=== PATIENT | female | born 1935 | race Caucasian/White ===

== ENCOUNTER 2017-07-12 02:18 | Inpatient (IN) | payer MEDICARE, SELFPAY | END 2017-07-13 11:35 | disposition home or self-care (01) | DRG 690 | PROVIDERS: Admitting Provider Family Medicine; Emergency Provider Emergency Medicine; Family Provider Family Medicine; PCP Family Medicine; Visit Provider Family Medicine | DX: N39.0 Urinary tract infection, site not specified (principal); I48.0 Paroxysmal atrial fibrillation; N13.2 Hydronephrosis with renal and ureteral calculous obstruction; I12.9 Hypertensive chronic kidney disease with stage 1 through stage 4 chronic kidney disease, or unspecified chronic kidney disease; N18.3 Chronic kidney disease, stage 3 (moderate) | CPT/HCPCS: 36415; 74176; 80048; 80053; 81001; 82150; 82550; 82553; 82962; 83605; 83690; 84484; 85025; 87040; 87077; 87086; 87088; 87186; 93005; 93041; 96365; 96367; 96375; 99285; J2405 ==

== ENCOUNTER 2017-08-01 16:41 | Observation (INO) | payer MEDICARE, SELFPAY ==
[2017-08-02 19:35] VITALS: BMI 31.1
[2017-08-03] VITALS (9 sets, daily range): BP systolic 108–140; BP diastolic 46–73; PULSE 50–79; RESP 16–20; TEMP 36.4–37.6; O2SAT 93–100
--- NOTE | 2017-08-03 02:45 | PC.NURSE ---
AT 2029 PT IV ON ASSESSMENT INFILTRATED LEFT ARM SWOLLEN. NEW IV STARTED LEFT HAND 20G TIMES ONE ATTEMPT. PT TOLERATED WELL.
--- NOTE | 2017-08-03 02:47 | PC.ADMIT ---
[id number] Admission Note: The patient,Brenda Morocho,81 y/o, was given written information regarding hospital policies, unit procedures and contact persons. Patient's smoking status: . Vital Signs - 8 hr 08/03/17 00:00 Temperature 97.5 F L Pulse Rate [Left Radial] 76 Respiratory Rate 18 Blood Pressure [Left Arm] 127/72 02 Sat by Pulse Oximetry 93 L
--- NOTE | 2017-08-03 04:08 | PC.NURSE ---
PT HAS SLEPT. NO COMPLAINTS OF PAIN. DAUGHTER HAS REMAINED AT [facility].
--- NOTE | 2017-08-03 08:17 | PC.NURSE ---
REPORT GIVEN TO ME BY LANDY
--- NOTE | 2017-08-03 11:16 | P.PN_ITS ---
Internal Medicine - PN: Subj *Date: 08/03/17 *Time: 11:18 Interval history: Rested well. No new complaints. Speech is more clear and fluent today. Denies abdominal pain. Night nurse left word that [facility] had called with bed but not confirmed today Exam Vital signs and Labs for Last 24 Hours: Temp Pulse Resp BP Pulse Ox 99.7 F H 73 18 131/66 100 08/03/17 08:00 08/03/17 08:00 08/03/17 08:00 08/03/17 08:00 08/03/17 08:00 Short CBC 08/02/17 Range/Units 06:10 WBC 5.6 D (4.8 - 10.8) K/MM3 Hgb 10.6 L D (12.2 - 16.2) g/dL Hct 32.9 L (37.0 - 47.0) % Plt Count 179 D (142 - 424) K/mm3 BMP 08/02/17 06:10 Sodium 136 Potassium 3.5 Chloride 100 Carbon Dioxide 32 BUN 21 H D Creatinine 1.9 H Glucose 110 H Calcium 8.6 Cardiac Enzymes 08/01/17 08/01/17 Range/Units 18:30 22:10 Troponin I 0.11 H 0.09 H (0.00 - 0.06) ng/mL I & O for Last 24 hours: Intake & Output 07/31/17 08/01/17 08/02/17 08/03/17 11:59 11:59 11:59 11:59 Intake Total 1425 / 1425 Balance 1425 / 1425 no acute distress - *Routine Respiratory Exam Present: CTA bilaterally - *Routine Cardiovascular Exam Present: RRR - *Routine Abdominal Exam Comments: soft, nondistended, NT Assessment and Plan (1) UTI (urinary tract infection) Current visit: Yes Status: Acute Category: Medical Code(s): N39.0 - Urinary tract infection, site not specified (2) Renal calculus Current visit: Yes Status: Acute Category: Medical Code(s): N20.0 - Calculus of kidney (3) Altered mental status Current visit: Yes Status: Acute Category: Medical Code(s): R41.82 - Altered mental status, unspecified (4) HBP (high blood pressure) Current visit: Yes Status: Acute Category: Medical Code(s): I10 - Essential (primary) hypertension - Assessment and plan all Dx Assessment and Plan for all problems:: Awaiting bed at [facility]. Will continue current antibiotics. Cultures pending. Mental status has improved with treatment of infection. Likely has not had another neurologic event
--- NOTE | 2017-08-04 07:10 | PC.NURSE ---
PT RESTING IN BED, WARM BLANKET TAKEN TO PT. FAMILY MEMBER AT BEDSIDE. CALL LIGHT IN REACH. NO OTHER NEEDS OR CONCERNS VOICED.
--- NOTE | 2017-08-04 08:15 | PC.NURSE ---
DR BEAVERS AT BEDSIDE FOR MORNING ROUNDS
[2017-08-04 08:50] VITALS: BP 139/84; PULSE 72; RESP 20; TEMP 36.8; O2SAT 98
--- NOTE | 2017-08-04 09:00 | PC.NURSE ---
PT RESTING IN BED. SCHEDULED MEDICATIONS GIVEN AT THIS TIME. PT DECLINED REPOSITIONING. NO NEEDS VOICED. VISITOR AT BEDSIDE. CALL LIGHT IN REACH.
--- NOTE | 2017-08-04 12:15 | PC.NURSE ---
PT RESTING IN BED, LUNCH TRAY TAKEN TO PT. NO NEEDS VOICED. VISITOR REMAINS AT BEDSIDE.
--- NOTE | 2017-08-04 12:23 | P.CONPHA_ITS ---
[facility] Pharmacy VTE Monitoring - Patient Demographics Admission date: 08/04/17 Report Date: 08/04/17 Time: 12:23 Allergies/Adverse Reactions: ciprofloxacin [From CIPRO] Allergy (Mild, Verified 08/03/17 02:24) nitrofurantoin [From MACROBID] Allergy (Unknown, Verified 08/03/17 02:24) simvastatin [SIMVASTATIN] Allergy (Unknown, Verified 08/03/17 02:24) Sulfa (Sulfonamide Antibiotics) [SULFA (SULFONAMIDE ANTIBIOTICS)] Allergy ( Unknown, Verified 08/03/17 02:24) Height: 1.65 m Weight: 85.07 kg Patient Problems: Current Active Problems UTI (urinary tract infection) (Acute) Renal calculus (Acute) Altered mental status (Acute) HBP (high blood pressure) (Acute) - VTE Risk Labs: VTE Related Lab Results Hgb 10.6 g/dL (12.2-16.2) L D 08/02/17 06:10 Hct 32.9 % (37.0-47.0) L 08/02/17 06:10 Plt Count 179 K/mm3 (142-424) D 08/02/17 06:10 BUN 21 mg/dL (7-18) H D 08/02/17 06:10 Creatinine 1.9 mg/dL (0.55-1.02) H 08/02/17 06:10 Estimated Creat Clear 32 ML/MIN (50-200) L 08/02/17 06:10 Was VTE Risk Assessment Performed: Yes VTE Score: 1 VTE Risk Level: Very Low Risk - Prophylaxis Types of VTE Prophylaxis: Pharmacological Location of Applied Device: Not Applicable Pharmacologic Type: Enoxaparin - VTE Diagnosis Confirmed Comment: [id number]
--- NOTE | 2017-08-04 12:44 | HMH.ACPN ---
Internal Medicine - PN: Subj *Date: 08/04/17 *Time: 12:44 Interval history: Rested well. No new complaints. Speech is more clear and fluent today. Denies abdominal pain. Night nurse left word that [facility] had called with bed but not confirmed today Exam Vital signs and Labs for Last 24 Hours: Temp Pulse Resp BP Pulse Ox 98.3 F 56 L 18 140/73 98 08/03/17 17:49 08/03/17 17:49 08/03/17 17:49 08/03/17 17:49 08/04/17 08:50 I & O for Last 24 hours: Intake & Output 08/02/17 08/03/17 08/04/17 08/05/17 11:59 11:59 11:59 11:59 Intake Total 1525 / 1525 1258 / 1258 Output Total 0 / 0 Balance 1525 / 1525 1258 / 1258 Narrative: Patient continues with same abdominal pain; denies nausea; voiding without difficulty; granddaughter is at bedside; assists her to bedside commode without difficulty; recognizes me no acute distress Comments: does not feel uncomfortable - *Routine Respiratory Exam Present: CTA bilaterally (A&P), distant breath sounds - *Routine Abdominal Exam Present: soft Comments: mildly tender left mid quadrant; + BS - *Routine Extremities Exam Comments: trace leg edema - *Routine Neurological Exam Present: alert speech is slow but is clear Assessment and Plan - Assessment and plan all Dx Assessment and Plan for all problems:: She has improved and will continue with current care until bed available at [facility]
--- NOTE | 2017-08-04 13:15 | PC.NURSE ---
DR BEAVERS CALLED VERBAL ORDER RECEIVED TO DISCHARGE PT HOME. LIST OF INDIVIDUAL HOME MEDICATIONS ADDRESSED WITH MD, HOME MEDS VERIFED WITH MD AND COPY OF MEDICATIONS MD WANTED TO CONTINUE PLACED ON CHART. ORDER R/V
--- NOTE | 2017-08-04 14:20 | PC.NURSE ---
PT DISCHARGED HOME. PT IN WHEELCHAIR. FAMILY MEMBER AND VISITOR PRESENT. PT ESCORTED TO PRIVATE CAR BY OB STAFF.
--- NOTE | 2017-08-09 21:46 | HMH.DCSUM ---
General - General Admission date: 08/01/17 Discharge date: 08/04/17 HPI HPI: Ms. 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 She is currently being followed by Dr. Sylvester for a staghorn calculus and had a stent placed within the last couple weeks. She is scheduled for surgery for removal of the stone next week at [facility]. In anticipation of her surgery, she was switched from her Xarelto to Lovenox about 3 days ago. Two days ago her daughter noticed she was having some increasing confusion and difficulty with her speech. She could not distinguish if it was more expressive aphasia or dysarthria. Nonetheless, with these symptoms she was brought to the emergency room yesterday for further evaluation. She was found to have a urinary tract infection, mildly elevated troponin and a nonacute noncontrast CT scan of the head. With these findings she was admitted for further evaluation and treatment. Objective Vital signs: Temp Pulse Resp BP Pulse Ox 98.2 F 72 20 139/84 98 08/04/17 08:50 08/04/17 08:50 08/04/17 08:50 08/04/17 08:50 08/04/17 08:50 Narrative: General appearance: lying bed, NAD, responds to questions Eyes: anicteric, conjunctiva clear ENT: mucous membranes moist Neck: no carotid bruit, supple Cardiovascular: regular rate & rhythm, no murmur Respiratory: clear to auscultation ABD: non-distended, normal bowel sounds, soft, no tenderness Extremities: no peripheral edema Skin: dry, warm, pale Neuro: alert, residual right sided weakness, slight dysarthria, ? mild expressive aphasia Hospital Course Hospital Course: Dr. Farooq saw her on the morning of 08/02/17. She had rested fairly well through the night. Her daughter noted her speech had been a bit more clear. Family also reported she had not been eating and drinking well for 3 days. She had had no fevers at home. No respiratory symptoms. No complaints of chest pain. She was admitted for further evaluation of her altered mental status. She was empirically started on IV Levaquin pending results of urine and blood cultures. Of note during her last recent admission she had Escherichia coli bacteremia. Her troponin I was elevated but trended downward with serial testing. She was continued on her Lovenox bridge in anticipation of her renal stone surgery. A head CT was stable and a CXR showed nothing acute. She improved on antibiotic treatment. Dr. Farooq spoke with Dr. Sylvester and he recommended continuing her antibiotics to clear her infection and keep the original plan for outpt lithotripsy. A bed was found for her at [place] and she was transferred. DS: Diagnosis - Discharge Diagnosis (1) Altered mental status Status: Acute (2) HBP (high blood pressure) Status: Acute (3) Renal calculus Status: Acute (4) UTI (urinary tract infection) Status: Acute Meds Home Medications Medication Instructions Recorded Confirmed Type Atorvastatin Calcium [Lipitor 20mg 20 mg PO HS 08/02/17 08/02/17 History Tablet] Bisoprolol Fumarate [Zebeta] 10 mg PO DAILY 08/02/17 08/02/17 History Cholecalciferol (Vitamin D3) 1 tab PO DAILY 08/02/17 08/02/17 History [Vitamin D3 1,000 Unit Cap] Enoxaparin Sodium [Lovenox 120 mg SQ DAILY 08/02/17 08/02/17 History 120mg/0.8mL syringe] Furosemide [Lasix 40mg tab] 40 mg PO BID 08/02/17 08/02/17 History Hydralazine HCl [Hydralazine HCl 25 mg PO BID 08/02/17 08/02/17 History 25mg Tablet] Hydrocodone/Acetaminophen [Lortab 1 tab PO QIDP PRN 08/02/17 08/02/17 History 7.5/325mg tablet] Multivitamin [One Daily 1 tab PO DAILY 08/02/17 08/02/17 History Multivitamin] Pantoprazole Sodium [Protonix 40mg 40 mg PO DAILY 08/02/17 08/02/17 History tablet] Rivaroxaban [Xarelto 15mg tablet] 15 mg PO 1700 08/02/17 08/02/17 History Triamterene/Hydrochlorothiazid 1 cap PO DAILY 08/02/17 08/02/17
--- NOTE | 2017-08-09 21:51 | P.DS_ITS ---
General - General Admission date: 08/01/17 Discharge date: 08/04/17 HPI HPI: Ms. 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 She is currently being followed by Dr. Sylvester for a staghorn calculus and had a stent placed within the last couple weeks. She is scheduled for surgery for removal of the stone next week at [facility]. In anticipation of her surgery, she was switched from her Xarelto to Lovenox about 3 days ago. Two days ago her daughter noticed she was having some increasing confusion and difficulty with her speech. She could not distinguish if it was more expressive aphasia or dysarthria. Nonetheless, with these symptoms she was brought to the emergency room yesterday for further evaluation. She was found to have a urinary tract infection, mildly elevated troponin and a nonacute noncontrast CT scan of the head. With these findings she was admitted for further evaluation and treatment. Objective Vital signs: Temp Pulse Resp BP Pulse Ox 98.2 F 72 20 139/84 98 08/04/17 08:50 08/04/17 08:50 08/04/17 08:50 08/04/17 08:50 08/04/17 08:50 Narrative: General appearance: lying bed, NAD, responds to questions Eyes: anicteric, conjunctiva clear ENT: mucous membranes moist Neck: no carotid bruit, supple Cardiovascular: regular rate & rhythm, no murmur Respiratory: clear to auscultation ABD: non-distended, normal bowel sounds, soft, no tenderness Extremities: no peripheral edema Skin: dry, warm, pale Neuro: alert, residual right sided weakness, slight dysarthria, ? mild expressive aphasia Hospital Course Hospital Course: Dr. Farooq saw her on the morning of 08/02/17. She had rested fairly well through the night. Her daughter noted her speech had been a bit more clear. Family also reported she had not been eating and drinking well for 3 days. She had had no fevers at home. No respiratory symptoms. No complaints of chest pain. She was admitted for further evaluation of her altered mental status. She was empirically started on IV Levaquin pending results of urine and blood cultures. Of note during her last recent admission she had Escherichia coli bacteremia. Her troponin I was elevated but trended downward with serial testing. She was continued on her Lovenox bridge in anticipation of her renal stone surgery. A head CT was stable and a CXR showed nothing acute. She improved on antibiotic treatment. Dr. Farooq spoke with Dr. Sylvester and he recommended continuing her antibiotics to clear her infection and keep the original plan for outpt lithotripsy. A bed was found for her at [place] and she was transferred. DS: Diagnosis - Discharge Diagnosis (1) Altered mental status Status: Acute (2) HBP (high blood pressure) Status: Acute (3) Renal calculus Status: Acute (4) UTI (urinary tract infection) Status: Acute Meds Home Medications Medication Instructions Recorded Confirmed Type Atorvastatin Calcium [Lipitor 20mg 20 mg PO HS 08/02/17 08/02/17 History Tablet] Bisoprolol Fumarate [Zebeta] 10 mg PO DAILY 08/02/17 08/02/17 History Cholecalciferol (Vitamin D3) 1 tab PO DAILY 08/02/17 08/02/17 History [Vitamin D3 1,000 Unit Cap] Enoxaparin Sodium [Lovenox 120 mg SQ DAILY 08/02/17 08/02/17 History 120mg/0.8mL syringe] Furosemide [Lasix 40mg tab] 40 mg PO BID 08/02/17 08/02/17 History Hydralazine HCl [Hydralazine HCl 25 mg PO BID
== END 2017-08-04 14:20 | disposition short-term general hospital (02) ==
LOC: 2ND 08-03 19:11 → OB 08-03 19:41
PROVIDERS: Admitting Provider Family Medicine; Emergency Provider Emergency Medicine; Visit Provider Family Medicine
DX: N39.0 Urinary tract infection, site not specified (principal); N20.9 Urinary calculus, unspecified; I10 Essential (primary) hypertension; I12.9 Hypertensive chronic kidney disease with stage 1 through stage 4 chronic kidney disease, or unspecified chronic kidney disease; N18.3 Chronic kidney disease, stage 3 (moderate); I48.0 Paroxysmal atrial fibrillation; E05.20 Thyrotoxicosis with toxic multinodular goiter without thyrotoxic crisis or storm; I69.351 Hemiplegia and hemiparesis following cerebral infarction affecting right dominant side
CPT/HCPCS: 36415; 70450; 71010; 80048; 80053; 81001; 82550; 82553; 83605; 84484; 85025; 87040; 87086; 87275; 87276; 93005; 93041; 96365; 99285; G0378; J1956; J2405

== ENCOUNTER → 2017-08-11 11:27 | Outpatient (CLI) | payer MEDICARE, SELFPAY ==
--- NOTE | 2017-08-11 11:34 | XR_ITS ---
[facility] CLINICAL INDICATION: ITS.REASON: KIDNEY STONE ORDERING PHYSICIAN: Virgilio Sylvester MD PATIENT AGE: 81 years COMPARISON: CT scan of 07/12/2017 FINDINGS: Multiple right renal calculi are present forming a cast of the mid In the lower pole on the right.. There is a right ureteral stent present with the proximal aspect overlying the region of the right renal pelvis and distal aspect overlying the region of the urinary bladder. There are several small stones along the proximal aspect of the stent. Lumbar scoliosis convex right with severe degenerative disc disease at L3-L4 and L4-L5 IMPRESSION: 1. Right ureteral stent in good position. 2. Right nephrolithiasis, stone fragments in proximal right ureter
== END ==
PROVIDERS: PCP Family Medicine; Visit Provider Urology
DX: N20.0 Calculus of kidney (principal)
CPT/HCPCS: 74018

== ENCOUNTER → 2017-09-15 10:05 | Outpatient (CLI) | payer MEDICARE, SELFPAY ==
--- NOTE | 2017-09-15 10:15 | XR_ITS ---
[facility] CLINICAL INDICATION: ITS.REASON: KIDNEY STONES ORDERING PHYSICIAN: Virgilio Sylvester MD PATIENT AGE: 81 years COMPARISON: 08/11/2017 FINDINGS: The right ureteral stent has been removed. Stone fragments in the proximal right ureter no longer apparent. Cast-like calcifications once again noted in the right kidney consistent with nephrolithiasis appear somewhat decreased in volume compared to the previous exam. Severe lumbar dextroscoliosis with degenerative disc disease IMPRESSION: Right nephrolithiasis. Interval removal of the right ureteral stent
== END ==
PROVIDERS: PCP Family Medicine; Visit Provider Urology
DX: N20.0 Calculus of kidney (principal)
CPT/HCPCS: 74018

== ENCOUNTER → 2018-01-12 10:23 | Outpatient (CLI) | payer MEDICARE, SELFPAY ==
--- NOTE | 2018-01-12 10:29 | XR_ITS ---
XR KUB HISTORY: ITS.REASON: KIDNEY STONES ORDERING PHYSICIAN: Virgilio Sylvester MD PATIENT AGE: 82 years COMPARISON: 09/15/2017 FINDINGS: Cast like calcifications once again noted in the lower pole the right kidney consistent with nephrolithiasis measuring up to 12 mm not significant change. No obvious ureteral calculi. Severe dextroscoliosis of the lumbar spine with degenerative change. IMPRESSION: Overall no change right nephrolithiasis
== END ==
PROVIDERS: PCP Family Medicine; Visit Provider Urology
DX: N20.0 Calculus of kidney (principal)
CPT/HCPCS: 74018

== ENCOUNTER → 2018-11-29 16:34 | Outpatient (CLI) | payer MEDICARE, SELFPAY ==
--- NOTE | 2018-11-29 16:48 | MM_ITS ---
MM Dig screening mamm BI w/CAD ORDERING PHYSICIAN : Arvind Farooq MD PATIENT AGE: 82 years GENDER: Female COMPARISON: Outside studies from [facility]: January 2015, October 2012, January 2014 and February 2016 INDICATION: ITS routine screening mammogram. No new complaints.. Family history. Sister and maternal aunt with breast cancer Had a stroke. Difficult to position TECHNIQUE: Standard CC and MLO images were obtained. R2 CAD reviewed. . Additional axillary cc view both breast along with additional MLO view nipple profile right breast. Patient in wheelchair has had stroke very difficult to position. had to be held in position. FINDINGS: . Low-density breast with generalized fatty replacement. . No new dominant mass nor suspicious calcifications either breast. RIGHT BREAST:No new findings of significant concern . Stable vascular calcifications LEFT BREAST:No new findings of significant concern. Benign intramammary node deep axillary tail left breast again observed . It measures just less than 7 mm size and has been present-since 2013. With no significant change since 2014 IMPRESSION: Stable bilateral mammogram. No new areas of concern. Bilateral follow-up in one year recommended. BI-RADS Category: 2 Benign Finding(s) RECOMMENDED FOLLOW-UP: 1YR 1 YEAR FOLLOW-UP (A letter has been sent to the patient regarding results of the study.)
== END ==
PROVIDERS: PCP Family Medicine; Visit Provider Family Medicine
DX: Z12.31 Encounter for screening mammogram for malignant neoplasm of breast (principal)
CPT/HCPCS: 77067

== ENCOUNTER 2019-02-27 18:54 | Observation (INO) ==
--- NOTE | 2019-02-27 19:18 | Emergency Department Note ---
ED Disposition Condition on Discharge: Fair - Critical Care Critical Care Time: No <AlexandraandrzejStefan - Last Filed: 02/27/19 20:02> <Neville Rivera - Last Filed: 02/27/19 21:55> Clinical Impression: Nephrolithiasis, History of CVA with residual deficit, Left flank pain, Seizure disorder, Abdominal pain of unknown etiology Cholelithiasis Qualifiers: Cholecystitis acuity: unspecified acuity UTI (urinary tract infection) Qualifiers: Urinary tract infection type: site unspecified Hematuria presence: without hematuria Qualified Code(s): N39.0 - Urinary tract infection, site not specified Disposition: Admitted as Observation Referrals: Arvind Farooq MD [Primary Care Provider] - Attestation: On 02/27/19, the high probability of a clinically significant, sudden or life threatening deterioration of the following system(s) required my full and direct attention, intervention and personal management. The time I documented below is in addition to time spent performing reported procedures but includes the following listed in this critical care notation. Medical Decision Making - Ozzie Inquiry Pt receiving controlled substance: No Ozzie was queried for this patient: No - Lab Data Result diagrams: 02/27/19 19:25 02/27/19 19:25 <AlexandraandrzejCindyrome - Last Filed: 02/27/19 20:02> - Medical Records Medical records reviewed: Yes: I reviewed the patient's medical records. - Lab Data Lab results reviewed: Yes: I reviewed the patient's lab results. Result diagrams: 02/27/19 19:25 02/27/19 19:25 - CT Data CT Scan: Head, Abdomen, Pelvis Time Received: 21:[address] Reviewed: Yes: I have viewed the radiologist's interpretation Preliminary Findings: Abnormal (see reports ) - Physician Consults Physician Consulted: chago Reason -: Admission <Neville Rivera - Last Filed: 02/27/19 21:55> Vital Signs: 02/27/19 18:56 Temperature 98.1 F Temperature Source Temporal Artery Scan Pulse Rate [Right Brachial] 88 Respiratory Rate 18 Blood Pressure [Right Arm] 143/75 H Blood Pressure Mean [Right Arm] 97 Blood Pressure Source [Right Arm] Automatic Cuff Blood Pressure Position [Right Arm] Sitting 02 Sat by Pulse Oximetry 98 Oxygen Delivery Method Room Air - Lab Data Lab Results 02/27/19 19:25: WBC 9.9, RBC 4.52, Hgb 12.8, Hct 38.6, MCV 85.5, MCH 28.3, MCHC 33.1, RDW 13.4, Plt Count 225, MPV 9.5, Neut % (Auto) 87.4 H, Lymph % (Auto) 7.7 L, [place] % (Auto) 3.8, Eos % (Auto) 0.9, Baso % (Auto) 0.2, Neut # (Auto) 8.7 H, Lymph # (Auto) 0.8, [place] # (Auto) 0.4, Eos # (Auto) 0.1, Baso # (Auto) 0.0, Total Counted 100, Neutrophils % (Manual) 85 H, Band Neutrophils % 8.0, Lymphocytes % (Manual) 7 L, Platelet Estimate Normal, RBC Morphology Normal 02/27/19 19:25: Sodium 128 L, Potassium 4.4, Chloride 93 L, Carbon Dioxide 24, Anion Gap 15.4 H, BUN 35 H, Creatinine 1.76 H, Estimated Creat Clear 33, Es timated GFR 28 L, Est GFR ( Amer) 34 L, Glucose 172 H, Calcium 9.1, Total Bilirubin 0.5, AST 10 L, ALT 16, Alkaline Phosphatase 80, Troponin I < 0.02, Total Protein 7.5, Albumin 3.4, Globulin 4.1 H, Albumin/Globulin Ratio 0.8 L 02/27/19 19:25: Lactate 1.3 02/27/19 21:10: Urine Color Yellow, Urine Appearance Clear, Urine pH 7.0, Ur Specific [place] 1.010, Urine Protein Negative, Urine Glucose (UA) Negative, Urine Ketones Negative, Urine Blood Trace-i, Urine Nitrate Positive, Urine Bilirubin Negative, Urine Urobilinogen 0.2, Ur Leukocyte Esterase Trace, Urine RBC 5-10, Urine WBC 5-10, Amorphous Sediment Trace, Urine Bacteria Trace Orders (Tests/Meds): ED MEDICATIONS Discontinued Medications Generic Name Dose Route Start Last Admin Trade Name Freq PRN Reason Stop Dose Admin Morphine Sulfate 2 mg 02/27/19 21:35 02/27/19 21:38 Morphine 2mg/Ml Syringe IV 02/27/19 21:36 2 mg ONCE ONE Administration ORDERS Category Date Time Status CT abdomen pelvis wo con Stat Cat Scan 02/27/19 19:[address] head/brain wo con Stat Cat Scan 02/27/19 19:01 Taken XR chest portable Stat Exams 02/27/19 19:01 Taken Blood Culture Stat Micro 02/27/19 19:25 Received Urine Culture Stat Micro 02/27/19 21:34 Ordered ECG Request by /Manuel Stat Y 02/27/19 19:19 Ordered Medical Decision Narrative: The patient remained stable.The care was trabsfered to incoming physician Dr Urbano cardoso pending labs and Ct scan reports. Dr. Henderson (Stefan Henderson) Abdominal Pain HPI - General Mode of Arrival: EMS Limitations: No Limitations Description of Symptoms (Recalled from ER Triage Doc. by RN): weakness and nausea, vomiting while en route to facility - History of Present Illness MD complaint: flank pain Onset (ago): day(s) Consistency: constant Location: L flank Severity: severe Severity scale (1-10): 9 Quality: dull Radiation: suprapubic Exacerbating factors: nothing Associated symptoms: nausea, vomiting <Stefan Henderson - Last Filed: 02/27/19 20:02> <Neville Rivera - Last Filed: 02/27/19 21:55> - General Chief Complaint: Weakness Stated Complaint: weakness,nausea Time Seen by Provider: 02/27/19 19:00 - History of Present Illness HPI narrative: 83 years old white female well-known to me from prior visits with history of CVA and right hemiparesis staghorn calculus of the left renal pelvis. She had a visit in February 05 due to similar complaint of flank pain following CT findings: IMPRESSION: 1. Right nephrolithiasis. No obstructing ureteral calculi 2. Constipation. 3. Possible cholelithiasis. 4. Other nonacute findings as described above Since yesterday the patient has been experiencing left flank pain and suprapubic pain rated as 9/10. Today, the patient developed nausea and vomited. Prior to the ambulance departure the patient had an episode of staring where she became unresponsive for 2 minutes then resolved spontaneously. (Stefan Henderson) - Related Data Home Medications Medication Instructions Recorded Confirmed Bisoprolol Fumarate [Zebeta] 10 mg PO DAILY 08/02/17 02/27/19 Cholecalciferol (Vitamin D3) 1 tab PO DAILY 08/02/17 02/27/19 [Vitamin D3 1,000 Unit Cap] Hydralazine HCl [Hydralazine HCl 25 mg PO TID 08/02/17 02/27/19 25mg Tablet] Multivitamin [One Daily 1 tab PO DAILY 08/02/17 02/27/19 Multivitamin] Pantoprazole Sodium [Protonix 40mg 40 mg PO DAILY 08/02/17 02/27/19 tablet] Rivaroxaban [Xarelto 15mg tablet] 15 mg PO 1700 08/02/17 02/27/19 Triamterene/Hydrochlorothiazid 1 cap PO DAILY 08/02/17 02/27/19 [Dyazide 37.5-25 Capsule] methIMAzole [Methimazole] 5 mg PO DAILY 08/02/17 02/27/19 cranberry 500 mg capsule 500 mg PO BID 01/12/18 02/27/19 Alendronate Sodium [Binosto] 70 mg PO WEEKLY 02/27/19 02/27/19 Polyethylene Glycol 3350 [Miralax 17 gm PO DAILY 02/27/19 02/27/19 17gm Packet] Ubidecarenone [Co Q-10] 100 mg PO DAILY 02/27/19 02/27/19 Allergies Allergy/AdvReac Type Severity Reaction Status Date / Time ciprofloxacin [From CIPRO] Allergy Mild Verified 01/12/18 08:27 nitrofurantoin Allergy Unknown Verified 01/12/18 08:27 [From MACROBID] simvastatin [SIMVASTATIN] Allergy Unknown Verified 01/12/18 08:27 Sulfa (Sulfonamide Allergy Unknown Verified 01/12/18 08:27 Antibiotics) [SULFA (SULFONAMIDE ANTIBIOTICS)] [facility] History - Hepatitis A Screen Drug use history?: No High risk sexual behaviors?: No History of sexually transmitted infection?: No Currently employed?: No Childcare worker?: No Do you have indoor plumbing?: Yes Do you have electricity?: Yes I have reviewed the patient's past medical history: Yes Medical History: Denies:: Diabetes Mellitus Type 1 - Social History Smoking Status: Never smoker Alcohol Intake: never Occupational Status: retired <Stefan Henderson - Last Filed: 02/27/19 20:02> - Hepatitis A Screen Attestation statement:: This patient has been screened for Hepatitis A risk factors. ROS Obtained: Yes All systems reviewed & no additional complaints <Stefan Henderson - Last Filed: 02/27/19 20:02> Physical Exam - General General appearance: alert, in no apparent distress - Head Head exam: atraumatic, normocephalic, normal inspection - Eye Eye exam: Present: normal appearance, PERRL, EOMI. Absent: scleral icterus, nystagmus - ENT ENT exam: Present: normal exam, normal oropharynx, mucous membranes moist, TM's normal bilaterally, normal external ear exam - Neck Neck exam: Present: normal inspection, full ROM, trachea midline. Absent: tenderness, meningismus, lymphadenopathy - Chest Chest inspection: Present: normal inspection, symmetric chest wall rise. Absent: tenderness - Respiratory Respiratory exam: Present: normal lung sounds bilaterally. Absent: respiratory distress, wheezes - Cardiovascular Cardiovascular exam: Present: regular rate, normal rhythm, normal heart sounds. Absent: JVD - Abdominal Exam Abdominal exam: Present: soft, tenderness, normal bowel sounds, other (Does have suprapubic tenderness and left flank tenderness. No guarding no rigidity no c ross or rebound tenderness. ). Absent: distention, guarding, rebound, rigidity, Fish's sign, tenderness at McBurney's Point - External exam: Present: normal external exam - Extremities Exam Extremities exam: Present: normal inspection, full ROM, normal capillary refill, other (Right foot scar of prior foot surgery.). Absent: tenderness, pedal edema, calf tenderness - Back Exam Back exam: Present: normal inspection, CVA tenderness (L). Absent: tenderness, CVA tenderness (R) - Neurological Exam Neurological exam: Present: alert, oriented X3, other (Aphasia with right hemiparesis) - Psychiatric Psychiatric exam: Present: normal affect, normal mood - Skin Skin exam: Present: warm, dry, intact, normal color - Lymphatic Lymphatic Findings: no adenopathy <AlexandraandrzejStefan - Last Filed: 02/27/19 20:02>
[2019-02-27 19:42] LABS: Eosinophils # 0.1 K/mm3 (0.0-0.4); Lymphocytes # 0.8 K/mm3 (0.7-4.5)
[2019-02-27 19:45] LABS: Basophils % 0.2 % (0.1-2.0); Eosinophils % 0.9 % (0.1-12.0); Hematocrit 38.6 % (37.0-47.0); Hemoglobin 12.8 g/dL (12.2-16.2); Lymphocytes % 7.7 % (10-50); Mean Corpuscular HGB Conc 33.1 g/dL (31.8-35.4); Mean Corpuscular Volume 85.5 fl (81-99); Mean Platelet Volume 9.5 fl (7.4-10.4); Monocytes # 0.4 K/mm3 (0.1-1.0); Monocytes % 3.8 % (1.7-9.3); Neutrophils # 8.7 K/mm3 (1.8-7.8); Neutrophils % 87.4 % (37.0-80.0); Platelet Count 225 K/mm3 (142-424); Red Blood Count 4.52 M/mm3 (4.20-5.40); Red Cell Distribution Width 13.4 % (11.5-17.5); White Blood Count 9.9 K/mm3 (4.8-10.8)
[2019-02-27 19:54] LABS: Lymphocytes % 7 % (10-50); Neutrophils % 85 % (42-76); RBC Morphology Normal; Total Cells Counted 100
[2019-02-27 19:56] LABS: Alanine Aminotransferase 16 U/L (12-78); Albumin Level 3.4 gm/dL (3.4-5.0); Albumin/Globulin Ratio 0.8 (1.1-1.8); Alkaline Phosphatase 80 U/L (46-116); Anion Gap 15.4 mEq/L (5-15); Aspartate Amino Transferase 10 U/L (15-37); Bilirubin,Total 0.5 mg/dL (0.2-1.0); Blood Urea Nitrogen 35 mg/dL (7-18); Calcium 9.1 mg/dL (8.5-10.1); Carbon Dioxide 24 mmol/L (21.0-32.0); Chloride 93 mmol/L (98-107); Globulin 4.1 gm/dl (1.3-3.2); Glucose 172 mg/dL (74-106); Sodium 128 mmol/L (136-145); Total Protein,Serum 7.5 gm/dL (6.4-8.2)
[2019-02-27 21:17] LABS: Microscopic, Urine URINE MICROSCOPIC (MICROSCOPIC)
[2019-02-27 21:30] LABS: Appearance,Urine CLEAR (Clear); Bilirubin,Urine Negative (Negative); Blood, Urine TRACE-I (Negative); Color,Urine YELLOW (Yellow); Glucose,Urine (UA) Negative (Negative); Ketones,Urine Negative (Negative); Leukocyte Esterase,Urine TRACE (Negative); Protein,Urine Negative (Negative); Urobilinogen,Urine 0.2 EU/dl (0.2)
[2019-02-27 21:34] LABS: Amorphous Sediment,Urine Trace /lpf; Bacteria,Urine Trace /lpf
[2019-02-28 04:05] LABS: Basophils % 0.2 % (0.1-2.0); Eosinophils # 0.2 K/mm3 (0.0-0.4); Eosinophils % 1.6 % (0.1-12.0); Hematocrit 36.8 % (37.0-47.0); Hemoglobin 11.8 g/dL (12.2-16.2); Lymphocytes # 0.7 K/mm3 (0.7-4.5); Mean Corpuscular HGB Conc 32.1 g/dL (31.8-35.4); Mean Corpuscular Volume 85.7 fl (81-99); Mean Platelet Volume 7.6 fl (7.4-10.4); Monocytes # 0.9 K/mm3 (0.1-1.0); Monocytes % 8.8 % (1.7-9.3); Neutrophils # 8.4 K/mm3 (1.8-7.8); Neutrophils % 82.5 % (37.0-80.0); Platelet Count 170 K/mm3 (142-424); Red Blood Count 4.29 M/mm3 (4.20-5.40); Red Cell Distribution Width 13.4 % (11.5-17.5); White Blood Count 10.2 K/mm3 (4.8-10.8)
[2019-02-28 04:30] LABS: Anion Gap 13.8 mEq/L (5-15); Blood Urea Nitrogen 36 mg/dL (7-18); Calcium 8.9 mg/dL (8.5-10.1); Carbon Dioxide 26 mmol/L (21.0-32.0); Chloride 96 mmol/L (98-107); Glucose 163 mg/dL (74-106); Sodium 131 mmol/L (136-145)
--- NOTE | 2019-02-28 07:32 | Pharmacy Consult Notes ---
[facility] Pharmacy VTE Monitoring - Patient Demographics Admission date: 02/27/19 Report Date: 02/28/19 Time: 07:32 Allergies/Adverse Reactions: Patient Allergies ciprofloxacin [From CIPRO] Allergy (Mild, Verified 01/12/18 08:27) nitrofurantoin [From MACROBID] Allergy (Unknown, Verified 01/12/18 08:27) simvastatin [SIMVASTATIN] Allergy (Unknown, Verified 01/12/18 08:27) Sulfa (Sulfonamide Antibiotics) [SULFA (SULFONAMIDE ANTIBIOTICS)] Allergy (Unknown, Verified 01/12/18 08:27) Height: 1.6 m Weight: 91 kg Patient Problems: Current Active Problems (Updated 02/27/19 @ 21:55 by Neville Rivera MD) UTI (urinary tract infection) (Acute) Renal calculus (Acute) Abdominal pain of unknown etiology (Acute) History of CVA with residual deficit (Acute) Cholelithiasis (Acute) Left flank pain (Acute) Seizure disorder (Acute) - VTE Risk Labs: VTE Related Lab Results Hgb 11.8 g/dL (12.2-16.2) L 02/28/19 04:00 Hct 36.8 % (37.0-47.0) L 02/28/19 04:00 Plt Count 170 K/mm3 (142-424) 02/28/19 04:00 BUN 36 mg/dL (7-18) H 02/28/19 04:00 Creatinine 2.00 mg/dL (0.55-1.02) H 02/28/19 04:00 Estimated Creat Clear 32 mL/min (50-200) 02/28/19 04:00 Was VTE Risk Assessment Performed: Yes VTE Score: 5 VTE Risk Level: Low Risk - Prophylaxis VTE Prophylaxis Ordered?: Yes Types of VTE Prophylaxis: Pharmacological Pharmacologic Type: Other (XARELTO) - VTE Diagnosis Confirmed Treatment or plan recommended: Continue Current Treatment
--- NOTE | 2019-02-28 08:01 | History & Physical Report ---
*Admission Date: 02/27/19 *Chief complaint: Abdominal pain *History of present illness: Ms. Morocho is an 83-year-old female with multiple medical issues to include paroxysmal atrial fibrillation, hypertension, hyperthyroidism, chronic headaches, GERD, history of CVA with residual deficit, and generalized osteoarthritis who presented to [facility] for evaluation yesterday p.m. after suffering with right lower quadrant abdominal pain. Family was bringing her to the emergency room when she "zoned out" for about 2 minutes. Thus they called the ambulance who transported her. She did vomit once getting into the ambulance. With evaluation in the emergency room CT of the head showed no acute changes; CT of the abdomen/pelvis showed nephrolithiasis; and chest x-ray showed no acute changes. She was was noted to have a urinary tract infection. She was admitted for further evaluation and treatment. This a.m. at time of exam patient is comfortable. She denies chest pain, abdominal pain, nausea and vomiting. She states she is voiding without difficulty. She denies hematuria. [facility] History Medical History: Reports:: Atrial Fibrillation, Cerebrovascular Accident (With right-sided weakness), Gastroesophageal Reflux Disease(GERD), Hyperlipidemia, Hypertension, Migraine, Myocardial Infarction Denies:: Cancer, Diabetes Mellitus Type 1, Diabetes Mellitus Type 2, MRSA *Have you ever received a pneumonia vaccine?: Yes *Have you received a flu vaccine this season?: Yes Other Medical History: Reports: Arthritis, Thyroid Disease Laterality Cases: Left: Total Knee Replacement, Right: Arthroscopy Shoulder Other Surgeries: Yes: Dilation and Curettage, Hysterectomy-Total, Other (LITHOTRIPSY TWICE) Amputation: No Fractures: Yes (RIGHT ANKLE SURGERY) - *Social History Educational Level: Completed Grade School Smoking Status: Never smoker Alcohol Intake: never *Occupational Status:: retired Housing: house Household Members: spouse *Travel in the last 8 weeks: None - Psychiatric History Expresses thoughts of harming self/others: None Suicide Plan Description: No Plan Family Hx:: Cancer (One sister had ovarian cancer. Another sister had breast cancer), Stroke Review of Systems - Constitutional Denies chills, Denies fever(s), Denies headache(s) - Eyes Denies change in vision - ENT Denies dizziness, Denies ear pain, Denies sore throat - *Cardiovascular Reports leg swelling, Denies chest pain, Denies shortness of breath, Denies irregular heart rhythm - *Respiratory Denies chest congestion, Denies cough, Denies shortness of breath - *Gastrointestinal Reports abdominal pain, Reports heartburn, Reports nausea, Reports vomiting, Denies change in bowel habits, Denies coffee ground vomit, Denies constipation, Denies loose stools, Denies vomiting blood, Denies black, tarry stools - *Genitourinary Denies difficulty urinating - *Musculoskeletal Reports abnormal walking, Reports joint pain, Reports muscle weakness - *Neurologic Reports abnormal speech (Speech is slow but clear), Denies confusion Meds Home Medications Medication Instructions Recorded Confirmed Type Bisoprolol Fumarate [Zebeta] 10 mg PO DAILY 08/02/17 02/27/19 History Cholecalciferol (Vitamin D3) 1 tab PO DAILY 08/02/17 02/27/19 History [Vitamin D3 1,000 Unit Cap] Hydralazine HCl [Hydralazine HCl 25 mg PO TID 08/02/17 02/27/19 History 25mg Tablet] Multivitamin [One Daily 1 tab PO DAILY 08/02/17 02/27/19 History Multivitamin] Pantoprazole Sodium [Protonix 40mg 40 mg PO DAILY 08/02/17 02/27/19 History tablet] Rivaroxaban [Xarelto 15mg tablet] 15 mg PO 1700 08/02/17 02/27/19 History Triamterene/Hydrochlorothiazid 1 cap PO DAILY 08/02/17 02/27/19 History [Dyazide 37.5-25 Capsule] methIMAzole [Methimazole] 5 mg PO DAILY 08/02/17 02/27/19 History Alendronate Sodium [Binosto] 70 mg PO WEEKLY 02/27/19 02/27/19 History Cranberry Fruit Extract [Cranberry] 500 mg PO BID 02/27/19 02/27/19 History Polyethylene Glycol 3350 [Miralax 17 gm PO DAILY 02/27/19 02/27/19 History 17gm Packet] Ubidecarenone [Co Q-10] 100 mg PO DAILY 02/27/19 02/27/19 History Allergies Allergy/AdvReac Type Severity Reaction Status Date / Time ciprofloxacin [From CIPRO] Allergy Mild Verified 01/12/18 08:27 nitrofurantoin Allergy Unknown Verified 01/12/18 08:27 [From MACROBID] simvastatin [SIMVASTATIN] Allergy Unknown Verified 01/12/18 08:27 Sulfa (Sulfonamide Allergy Unknown Verified 01/12/18 08:27 Antibiotics) [SULFA (SULFONAMIDE ANTIBIOTICS)] Exam Vital signs and Labs for Last 24 Hours: Temp Pulse Resp BP Pulse Ox 98.2 F 63 18 171/74 H 98 02/28/19 07:49 02/28/19 07:49 02/28/19 07:49 02/28/19 07:49 02/28/19 07:49 Laboratory Results - last 24 hr 02/27/19 19:25: WBC 9.9, RBC 4.52, Hgb 12.8, Hct 38.6, MCV 85.5, MCH 28.3, MCHC 33.1, RDW 13.4, Plt Count 225, MPV 9.5, Neut % (Auto) 87.4 H, Lymph % (Auto) 7.7 L, [place] % (Auto) 3.8, Eos % (Auto) 0.9, Baso % (Auto) 0.2, Neut # (Auto) 8.7 H, Lymph # (Auto) 0.8, [place] # (Auto) 0.4, Eos # (Auto) 0.1, Baso # (Auto) 0.0, Total Counted 100, Neutrophils % (Manual) 85 H, Band Neutrophils % 8.0, Lymphocytes % (Manual) 7 L, Platelet Estimate Normal, RBC Morphology Normal 02/27/19 19:25: Sodium 128 L, Potassium 4.4, Chloride 93 L, Carbon Dioxide 24, Anion Gap 15.4 H, BUN 35 H, Creatinine 1.76 H, Estimated Creat Clear 33, Estimated GFR 28 L, Est GFR ( Amer) 34 L, Glucose 172 H, Calcium 9.1, Total Bilirubin 0.5, AST 10 L, ALT 16, Alkaline Phosphatase 80, Troponin I < 0.02, Total Protein 7.5, Albumin 3.4, Globulin 4.1 H, Albumin/Globulin Ratio 0.8 L 02/27/19 19:25: Lactate 1.3 02/27/19 21:10: Urine Color Yellow, Urine Appearance Clear, Urine pH 7.0, Ur Specific [place] 1.010, Urine Protein Negative, Urine Glucose (UA) Negative, Urine Ketones Negative, Urine Blood Trace-i, Urine Nitrate Positive, Urine Bilirubin Negative, Urine Urobilinogen 0.2, Ur Leukocyte Esterase Trace, Urine RBC 5-10, Urine WBC 5-10, Amorphous Sediment Trace, Urine Bacteria Trace 02/28/19 01:00: Troponin I < 0.02 02/28/19 04:00: WBC 10.2, RBC 4.29, Hgb 11.8 L, Hct 36.8 L, MCV 85.7, MCH 27.5, MCHC 32.1, RDW 13.4, Plt Count 170, MPV 7.6, Neut % (Auto) 82.5 H, Lymph % (Auto) 7.0 L, [place] % (Auto) 8.8, Eos % (Auto) 1.6, Baso % (Auto) 0.2, Neut # (Auto) 8.4 H, Lymph # (Auto) 0.7, [place] # (Auto) 0.9, Eos # (Auto) 0.2, Baso # (Auto) 0.0 02/28/19 04:00: Sodium 131 L, Potassium 4.8, Chloride 96 L, Carbon Dioxide 26, Anion Gap 13.8, BUN 36 H, Creatinine 2.00 H, Estimated Creat Clear 32, Estimated GFR 24 L, Est GFR ( Amer) 29 L, Glucose 163 H, Calcium 8.9, Troponin I < 0.02 I & O for Last 24 hours: Intake & Output 02/25/19 02/26/19 02/27/19 02/28/19 11:59 11:59 11:59 11:59 Intake Total 398 / 398 Balance 398 / 398 Weight 200 lb 9.93 oz Radiology Reports for the Last 24 Hours: Chest x-ray 02/27/2019 IMPRESSION: No change with no acute finding. Mild cardiomegaly CT of the head 02/27/2019 IMPRESSION: 1. No acute intracranial findings. 2. Chronic ischemic changes. 3. Right mastoid effusion which is somewhat worse CT of abdomen/pelvis 02/27/2019 IMPRESSION: Right nephrolithiasis. No hydronephrosis or ureteral calculi. No acute finding. Other nonacute findings as described above - Constitutional no acute distress - *Routine HEENT Exam Head: Present: normocephalic, atraumatic Eye: Present: PERRL. Absent: conjunctival icterus, scleral injection ENT: Present: mucous membranes moist, oropharynx clear - *Routine Neck Exam Present: supple. Absent: carotid bruit, lymphadenopathy, thyromegaly - *Routine Respiratory Exam Present: CTA bilaterally (Anteriorly and posteriorly) - *Routine Cardiovascular Exam Present: RRR - *Routine Abdominal Exam Present: soft, normoactive bowel sounds. Absent: tenderness, distended, guarding - *Routine Extremities Exam Present: full ROM. Absent: edema, calf tenderness - *Routine Neurological Exam Present: alert, oriented X3 Assessment and Plan (1) UTI (urinary tract infection) Current visit: Yes Status: Acute Qualifiers: Urinary tract infection type: site unspecified Hematuria presence: without hematuria Qualified Code(s): N39.0 - Urinary tract infection, site not specified Category: Medical Code(s): N39.0 - Urinary tract infection, site not specified (2) Abdominal pain of unknown etiology Current visit: Yes Status: Acute Category: Medical Code(s): R10.9 - Unspecified abdominal pain (3) History of CVA with residual deficit Current visit: Yes Status: Acute Category: Medical Code(s): I69.30 - Unspecified sequelae of cerebral infarction (4) Renal calculus Current visit: Yes Status: Acute Category: Medical Code(s): N20.0 - Calculus of kidney (5) Paroxysmal atrial fibrillation Current visit: Yes Status: Acute Category: Medical Code(s): I48.0 - Paroxysmal atrial fibrillation (6) Hypertension Current visit: Yes Status: Acute Category: Medical Code(s): I10 - Essential (primary) hypertension - Assessment and plan all Dx Assessment and Plan for all problems:: Patient has been started on Rocephin for UTI. We will continue to monitor while waiting culture results.
[2019-03-01 07:00] LABS: Basophils % 0.3 % (0.1-2.0); Eosinophils # 0.3 K/mm3 (0.0-0.4); Eosinophils % 3.9 % (0.1-12.0); Hematocrit 37.8 % (37.0-47.0); Hemoglobin 12.2 g/dL (12.2-16.2); Lymphocytes # 0.8 K/mm3 (0.7-4.5); Lymphocytes % 10.1 % (10-50); Mean Corpuscular HGB Conc 32.4 g/dL (31.8-35.4); Mean Corpuscular Volume 89.3 fl (81-99); Mean Platelet Volume 7.9 fl (7.4-10.4); Monocytes # 0.3 K/mm3 (0.1-1.0); Monocytes % 4.2 % (1.7-9.3); Neutrophils # 6.6 K/mm3 (1.8-7.8); Neutrophils % 81.5 % (37.0-80.0); Platelet Count 186 K/mm3 (142-424); Red Blood Count 4.23 M/mm3 (4.20-5.40); Red Cell Distribution Width 13.6 % (11.5-17.5); White Blood Count 8.1 K/mm3 (4.8-10.8)
[2019-03-01 07:07] LABS: Calcium 8.5 mg/dL (8.5-10.1)
--- NOTE | 2019-03-01 08:27 | Progress Note ---
Internal Medicine - PN: Subj *Date: 03/01/19 *Time: 08:24 Interval history: Patient thought she was at home last night. Nurses report confusion. She did not sleep well. She ate without difficulty this morning. She has some right lower quadrant abdominal and flank pain which was relieved by morphine. She is voiding without difficulty. Her bowels did not move yesterday. She denies chest pain and shortness of breath Exam Vital signs and Labs for Last 24 Hours: Temp Pulse Resp BP Pulse Ox 98.1 F 68 22 178/89 H 96 03/01/19 08:00 03/01/19 08:00 03/01/19 08:00 03/01/19 08:00 03/01/19 08:00 Laboratory Results - last 24 hr 03/01/19 06:38: WBC 8.1, RBC 4.23, Hgb 12.2, Hct 37.8, MCV 89.3, MCH 28.9, MCHC 32.4, RDW 13.6, Plt Count 186, MPV 7.9, Neut % (Auto) 81.5 H, Lymph % (Auto) 10.1, [place] % (Auto) 4.2, Eos % (Auto) 3.9, Baso % (Auto) 0.3, Neut # (Auto) 6.6, Lymph # (Auto) 0.8, [place] # (Auto) 0.3, Eos # (Auto) 0.3, Baso # (Auto) 0.0 03/01/19 06:38: Sodium 129 L, Potassium 4.0, Chloride 96 L, Carbon Dioxide 23, Anion Gap 14.0, BUN 40 H, Creatinine 2.36 H, Estimated Creat Clear 28, Estimated GFR 20 L, Est GFR ( Amer) 24 L, Glucose 127 H, Calcium 8.5 I & O for Last 24 hours: Intake & Output 02/26/19 02/27/19 02/28/19 03/01/19 11:59 11:59 11:59 11:59 Intake Total 398 / 398 1760 / 1760 Output Total 150 / 150 250 / 250 Balance 248 / 248 1510 / 1510 Weight 200 lb 9.93 oz 211 lb 13.828 oz Microbiology Reports for the Last 24 Hours: Microbiology 02/27/19 21:10 Urine,Clean Catch Urine Culture - Final Multiple organisms, suggests contamination. 02/27/19 19:25 Blood Blood Culture - Preliminary - Constitutional no acute distress - *Routine Respiratory Exam Present: CTA bilaterally - *Routine Cardiovascular Exam Present: RRR - *Routine Abdominal Exam Present: soft, normoactive bowel sounds Comments: Mildly tender in right lower quadrant - *Routine Extremities Exam Absent: edema, calf tenderness - *Routine Neurological Exam Present: alert, oriented X3 Patient is alert and oriented this a.m. Assessment and Plan (1) UTI (urinary tract infection) Current visit: Yes Status: Acute Qualifiers: Urinary tract infection type: site unspecified Hematuria presence: without hematuria Qualified Code(s): N39.0 - Urinary tract infection, site not specified Category: Medical Code(s): N39.0 - Urinary tract infection, site not specified (2) Abdominal pain of unknown etiology Current visit: Yes Status: Acute Category: Medical Code(s): R10.9 - Unspecified abdominal pain (3) History of CVA with residual deficit Current visit: Yes Status: Acute Category: Medical Code(s): I69.30 - Unspecified sequelae of cerebral infarction (4) Renal calculus Current visit: Yes Status: Acute Category: Medical Code(s): N20.0 - Calculus of kidney (5) Paroxysmal atrial fibrillation Current visit: Yes Status: Acute Category: Medical Code(s): I48.0 - Paroxysmal atrial fibrillation (6) Hypertension Current visit: Yes Status: Acute Category: Medical Code(s): I10 - Essential (primary) hypertension - Assessment and plan all Dx Assessment and Plan for all problems:: Urine culture reveals multiple organisms suggesting contamination. Renal function is slightly worse today. We will continue with low IV rate and antibiotic for now.
--- NOTE | 2019-03-01 11:33 | Consult Report ---
*Admission Date: 02/27/19 *Reason for consult:: Right renal calculus *History of present illness: Patient is known to me with previous history of urolithiasis. Several years ago she presented with an obstructing large right proximal ureteral stone and urinary infection. She initially had stent placement followed by ureteroscopy and laser of that stone. She has had no further issues with stone events. She was admitted on the after feeling poorly. She was noted to have a nitrite positive urine although otherwise parameters moderately unremarkable. She had a CT scan of the abdomen pelvis which revealed some stones nonobstructing lower pole right kidney. She had no hydronephrosis. sHe has had no flank pain. She has had no dysuria urgency or frequency. Her urine culture did grow a strep sp ecies. She is on antibiotic therapy. She has no CVA tenderness. sHe is alert. She has sequela of previous stroke but is appropriate. Impression nonobstructing right renal calculi. These are asymptomatic and I would recommend no intervention. I recommend going ahead and treating her for culture. Urologic intervention indicated at this time. PRN Review of Systems - *Neurologic Reports abnormal walking, Reports abnormal speech (Speech is slow but clear), Denies confusion, Denies dizziness, Denies headache(s) [facility] History Medical History: Reports:: Atrial Fibrillation, Cerebrovascular Accident (With right-sided weakness), Gastroesophageal Reflux Disease(GERD), Hyperlipidemia, Hypertension, Migraine, Myocardial Infarction Denies:: Cancer, Diabetes Mellitus Type 1, Diabetes Mellitus Type 2, MRSA *Have you ever received a pneumonia vaccine?: Yes *Have you received a flu vaccine this season?: Yes Other Medical History: Reports: Arthritis, Thyroid Disease Laterality Cases: Left: Total Knee Replacement, Right: Arthroscopy Shoulder Other Surgeries: Yes: Dilation and Curettage, Hysterectomy-Total, Other (LITHOTRIPSY TWICE) Amputation: No Fractures: Yes (RIGHT ANKLE SURGERY) - *Social History Educational Level: Completed Grade School Smoking Status: Never smoker Alcohol Intake: never *Occupational Status:: retired Housing: house Household Members: spouse *Travel in the last 8 weeks: None - Psychiatric History Expresses thoughts of harming self/others: None Suicide Plan Description: No Plan Family Hx:: Cancer (One sister had ovarian cancer. Another sister had breast cancer), Stroke Meds Home Medications Medication Instructions Recorded Confirmed Type Bisoprolol Fumarate [Zebeta] 10 mg PO DAILY 08/02/17 02/27/19 History Cholecalciferol (Vitamin D3) 1 tab PO DAILY 08/02/17 02/27/19 History [Vitamin D3 1,000 Unit Cap] Hydralazine HCl [Hydralazine HCl 25 mg PO TID 08/02/17 02/27/19 History 25mg Tablet] Multivitamin [One Daily 1 tab PO DAILY 08/02/17 02/27/19 History Multivitamin] Pantoprazole Sodium [Protonix 40mg 40 mg PO DAILY 08/02/17 02/27/19 History tablet] Rivaroxaban [Xarelto 15mg tablet] 15 mg PO 1700 08/02/17 02/27/19 History Triamterene/Hydrochlorothiazid 1 cap PO DAILY 08/02/17 02/27/19 History [Dyazide 37.5-25 Capsule] methIMAzole [Methimazole] 5 mg PO DAILY 08/02/17 02/27/19 History Alendronate Sodium [Binosto] 70 mg PO WEEKLY 02/27/19 02/27/19 History Cranberry Fruit Extract [Cranberry] 500 mg PO BID 02/27/19 02/27/19 History Polyethylene Glycol 3350 [Miralax 17 gm PO DAILY 02/27/19 02/27/19 History 17gm Packet] Ubidecarenone [Co Q-10] 100 mg PO DAILY 02/27/19 02/27/19 History Allergies Allergy/AdvReac Type Severity Reaction Status Date / Time ciprofloxacin [From CIPRO] Allergy Mild Verified 01/12/18 08:27 nitrofurantoin Allergy Unknown Verified 01/12/18 08:27 [From MACROBID] simvastatin [SIMVASTATIN] Allergy Unknown Verified 01/12/18 08:27 Sulfa (Sulfonamide Allergy Unknown Verified 01/12/18 08:27 Antibiotics) [SULFA (SULFONAMIDE ANTIBIOTICS)] Exam Vital signs and Labs for Last 24 Hours: Temp Pulse Resp BP Pulse Ox 98.1 F 68 22 178/89 H 96 03/01/19 08:00 03/01/19 08:00 03/01/19 08:00 03/01/19 08:00 03/01/19 08:00 Laboratory Results - last 24 hr 03/01/19 06:38: WBC 8.1, RBC 4.23, Hgb 12.2, Hct 37.8, MCV 89.3, MCH 28.9, MCHC 32.4, RDW 13.6, Plt Count 186, MPV 7.9, Neut % (Auto) 81.5 H, Lymph % (Auto) 10.1, [place] % (Auto) 4.2, Eos % (Auto) 3.9, Baso % (Auto) 0.3, Neut # (Auto) 6.6, Lymph # (Auto) 0.8, [place] # (Auto) 0.3, Eos # (Auto) 0.3, Baso # (Auto) 0.0 03/01/19 06:38: Sodium 129 L, Potassium 4.0, Chloride 96 L, Carbon Dioxide 23, A nion Gap 14.0, BUN 40 H, Creatinine 2.36 H, Estimated Creat Clear 28, Estimated GFR 20 L, Est GFR ( Amer) 24 L, Glucose 127 H, Calcium 8.5 I & O for Last 24 hours: Intake & Output 02/26/19 02/27/19 02/28/19 03/01/19 23:59 23:59 23:59 23:59 Intake Total 100 / 100 1020 / 1020 1278 / 1278 Output Total 400 / 400 200 / 200 Balance 100 / 100 620 / 620 1078 / 1078 Weight 90.6 kg 91 kg 96.1 kg Microbiology Reports for the Last 24 Hours: Microbiology 02/27/19 19:25 Blood Blood Culture - Preliminary Gram Positive Cocci 02/27/19 21:10 Urine,Clean Catch Urine Culture - Final Multiple organisms, suggests contamination. Results - Labs 03/01/19 06:38 03/01/19 06:38 Laboratory Results - last 24 hr 03/01/19 06:38: WBC 8.1, RBC 4.23, Hgb 12.2, Hct 37.8, MCV 89.3, MCH 28.9, MCHC 32.4, RDW 13.6, Plt Count 186, MPV 7.9, Neut % (Auto) 81.5 H, Lymph % (Auto) 10.1, [place] % (Auto) 4.2, Eos % (Auto) 3.9, Baso % (Auto) 0.3, Neut # (Auto) 6.6, Lymph # (Auto) 0.8, [place] # (Auto) 0.3, Eos # (Auto) 0.3, Baso # (Auto) 0.0 03/01/19 06:38: Sodium 129 L, Potassium 4.0, Chloride 96 L, Carbon Dioxide 23, Anion Gap 14.0, BUN 40 H, Creatinine 2.36 H, Estimated Creat Clear 28, Estimated GFR 20 L, Est GFR ( Amer) 24 L, Glucose 127 H, Calcium 8.5 Assessment and Plan (1) UTI (urinary tract infection) Current visit: Yes Status: Acute Qualifiers: Urinary tract infection type: site unspecified Hematuria presence: without hematuria Qualified Code(s): N39.0 - Urinary tract infection, site not specified Category: Medical Code(s): N39.0 - Urinary tract infection, site not specified (2) Abdominal pain of unknown etiology Current visit: Yes Status: Acute Category: Medical Code(s): R10.9 - Unspecified abdominal pain (3) History of CVA with residual deficit Current visit: Yes Status: Acute Category: Medical Code(s): I69.30 - Unspecified sequelae of cerebral infarction (4) Renal calculus Current visit: Yes Status: Acute Category: Medical Code(s): N20.0 - Calculus of kidney (5) Paroxysmal atrial fibrillation Current visit: Yes Status: Acute Category: Medical Code(s): I48.0 - Paroxysmal atrial fibrillation (6) Hypertension Current visit: Yes Status: Acute Category: Medical Code(s): I10 - Essential (primary) hypertension
--- NOTE | 2019-03-01 17:16 | Progress Note ---
Internal Medicine - PN: Subj *Date: 03/01/19 *Time: 17:14 Interval history: She continues to have some episodic right-sided discomfort. Her abdomen is soft. A blood culture shows gram-positive cocci but her urine is not culturing out anything at this point. Perhaps the blood culture indicates a contaminant. Her white blood cell count has not been elevated. I am decreasing the morphine dose due to changes in mental status with the 2 mg dose. Exam Vital signs and Labs for Last 24 Hours: Temp Pulse Resp BP Pulse Ox 97.7 F 81 22 185/71 H 94 L 03/01/19 15:35 03/01/19 15:35 03/01/19 15:35 03/01/19 15:35 03/01/19 15:35 Laboratory Results - last 24 hr 03/01/19 06:38: WBC 8.1, RBC 4.23, Hgb 12.2, Hct 37.8, MCV 89.3, MCH 28.9, MCHC 32.4, RDW 13.6, Plt Count 186, MPV 7.9, Neut % (Auto) 81.5 H, Lymph % (Auto) 10.1, [place] % (Auto) 4.2, Eos % (Auto) 3.9, Baso % (Auto) 0.3, Neut # (Auto) 6.6, Lymph # (Auto) 0.8, [place] # (Auto) 0.3, Eos # (Auto) 0.3, Baso # (Auto) 0.0 03/01/19 06:38: Sodium 129 L, Potassium 4.0, Chloride 96 L, Carbon Dioxide 23, Anion Gap 14.0, BUN 40 H, Creatinine 2.36 H, Estimated Creat Clear 28, Estimated GFR 20 L, Est GFR ( Amer) 24 L, Glucose 127 H, Calcium 8.5 I & O for Last 24 hours: Intake & Output 02/27/19 02/28/19 03/01/19 03/02/19 11:59 11:59 11:59 11:59 Intake Total 398 / 398 1999 / 1999 1056 / 1056 Output Total 150 / 150 450 / 450 300 / 300 Balance 248 / 248 1550 / 1550 756 / 756 Weight 200 lb 9.93 oz 211 lb 13.828 oz Microbiology Reports for the Last 24 Hours: Microbiology 02/27/19 19:25 Blood Blood Culture - Preliminary Gram Positive Cocci 02/27/19 21:10 Urine,Clean Catch Urine Culture - Final Multiple organisms, suggests contamination. - Constitutional no acute distress - *Routine Respiratory Exam Present: CTA bilaterally - *Routine Cardiovascular Exam Present: RRR - *Routine Abdominal Exam Present: soft. Absent: tenderness Assessment and Plan (1) UTI (urinary tract infection) Current visit: Yes Status: Acute Qualifiers: Urinary tract infection type: site unspecified Hematuria presence: without hematuria Qualified Code(s): N39.0 - Urinary tract infection, site not specifi ed Category: Medical Code(s): N39.0 - Urinary tract infection, site not specified (2) Abdominal pain of unknown etiology Current visit: Yes Status: Acute Category: Medical Code(s): R10.9 - Unspecified abdominal pain (3) History of CVA with residual deficit Current visit: Yes Status: Acute Category: Medical Code(s): I69.30 - Unspecified sequelae of cerebral infarction (4) Renal calculus Current visit: Yes Status: Acute Category: Medical Code(s): N20.0 - Calculus of kidney (5) Paroxysmal atrial fibrillation Current visit: Yes Status: Acute Category: Medical Code(s): I48.0 - Paroxysmal atrial fibrillation (6) Hypertension Current visit: Yes Status: Acute Category: Medical Code(s): I10 - Essential (primary) hypertension - Assessment and plan all Dx Assessment and Plan for all problems:: Decrease morphine. Urine culture. Blood chemistry in the morning.
[2019-03-01 17:50] LABS: Microscopic, Urine URINE MICROSCOPIC (MICROSCOPIC)
[2019-03-01 18:19] LABS: Appearance,Urine CLEAR (Clear); Bilirubin,Urine Negative (Negative); Blood, Urine Negative (Negative); Color,Urine YELLOW (Yellow); Glucose,Urine (UA) Negative (Negative); Ketones,Urine Negative (Negative); Leukocyte Esterase,Urine 1+ (Negative); Protein,Urine Negative (Negative); Specific Gravity, Urine <= 1.005 (1.005-1.030); Urobilinogen,Urine 0.2 EU/dl (0.2)
[2019-03-01 18:39] LABS: Bacteria,Urine Trace /lpf
--- NOTE | 2019-03-02 08:08 | Progress Note ---
Internal Medicine - PN: Subj *Date: 03/02/19 *Time: 08:05 Interval history: Patient did not sleep much last night. She has had a headache. Tylenol helps a little. She usually takes tramadol at home for her headaches. Her right side is not painful but is sore. She denies nausea although she does not want eating breakfast. According to her daughter she did eat satisfactory yesterday but is not drinking many fluids.. Her bowels have not moved and she request MiraLAX which she takes at home. She is voiding without difficulty. She did sit up in a chair yesterday for several hours and did well. Exam Vital signs and Labs for Last 24 Hours: Temp Pulse Resp BP Pulse Ox 98.4 F 66 18 118/69 93 L 03/02/19 04:00 03/02/19 04:00 03/02/19 04:00 03/02/19 04:00 03/02/19 04:00 Laboratory Results - last 24 hr 03/01/19 06:38: TSH 3.32 03/01/19 17:40: Urine Color Yellow, Urine Appearance Clear, Urine pH 6.0, Ur Specific [place] <= 1.005, Urine Protein Negative, Urine Glucose (UA) Negative, Urine Ketones Negative, Urine Blood Negative, Urine Nitrate Negative, Urine Bilirubin Negative, Urine Urobilinogen 0.2, Ur Leukocyte Esterase 1+ A, Urine WBC 5-10, Ur Squamous Epith Cells 5-10, Urine Bacteria Trace I & O for Last 24 hours: Intake & Output 02/27/19 02/28/19 03/01/19 03/02/19 11:59 11:59 11:59 11:59 Intake Total 398 / 398 1999 Output Total 150 / 150 450 / 450 950 / 950 Balance 248 / 248 1550 / 1550 1043 / 1043 Weight 200 lb 9.93 oz 211 lb 13.828 oz 212 lb 3 oz Microbiology Reports for the Last 24 Hours: Microbiology 02/27/19 19:25 Blood Blood Culture - Preliminary Staphylococcus epidermidis 02/27/19 19:25 Blood Blood Culture - Preliminary NO GROWTH AFTER 48 HOURS 02/27/19 21:10 Urine,Clean Catch Urine Culture - Final Multiple organisms, suggests contamination. - Constitutional no acute distress Comments: Awake and alert - *Routine Respiratory Exam Present: CTA bilaterally (Anteriorly and posteriorly) - *Routine Cardiovascular Exam Present: RRR - *Routine Abdominal Exam Present: soft, normoactive bowel sounds, tenderness (More in the right upper quadrant today.). Absent: distended, guarding - *Routine Extremities Exam Absent: edema, calf tenderness - *Routine Neurological Exam Present: alert ( seems oriented this morning) Assessment and Plan (1) UTI (urinary tract infection) Current visit: Yes Status: Acute Qualifiers: Urinary tract infection type: site unspecified Hematuria presence: without hematuria Qualified Code(s): N39.0 - Urinary tract infection, site not specified Category: Medical Code(s): N39.0 - Urinary tract infection, site not specified (2) Abdominal pain of unknown etiology Current visit: Yes Status: Acute Category: Medical Code(s): R10.9 - Unspecified abdominal pain (3) History of CVA with residual deficit Current visit: Yes Status: Acute Category: Medical Code(s): I69.30 - Unspecified sequelae of cerebral infarction (4) Renal calculus Current visit: Yes Status: Acute Category: Medical Code(s): N20.0 - Calculus of kidney (5) Paroxysmal atrial fibrillation Current visit: Yes Status: Acute Category: Medical Code(s): I48.0 - Paroxysmal atrial fibrillation (6) Hypertension Current visit: Yes Status: Acute Category: Medical Code(s): I10 - Essential (primary) hypertension - Assessment and plan all Dx Assessment and Plan for all problems:: Blood culture revealed staph epi. Sensitive mostly to IV meds. May consider this is a contaminant. Patient continues without fever and white blood cell count has been normal. Will encourage activity out of bed. We will continue with IV fluids and Rocephin for now. We will add MiraLAX for her bowels and tramadol for her headache.
[2019-03-02 09:25] LABS: Anion Gap 13.2 mEq/L (5-15); Calcium 8.2 mg/dL (8.5-10.1)
--- NOTE | 2019-03-03 16:31 | Discharge Summary ---
General - General Admission date:: 02/27/19 Discharge date: 03/02/19 HPI HPI: Ms. Morocho is an 83-year-old female with multiple medical issues to include paroxysmal atrial fibrillation, hypertension, hyperthyroidism, chronic headaches, GERD, history of CVA with residual deficit, and generalized osteoarthritis who presented to [facility] for evaluation yesterday p.m. after suffering with right lower quadrant abdominal pain. Family was bringing her to the emergency room when she "zoned out" for about 2 minutes. Thus they called the ambulance who transported her. She did vomit once getting into the ambulance. With evaluation in the emergency room CT of the head showed no acute changes; CT of the abdomen/pelvis showed nephrolithiasis; and chest x-ray showed no acute changes. She was noted to have a urinary tract infection. She was admitted for further evaluation and treatment. This a.m. at time of exam patient is comfortable. She denies chest pain, abdominal pain, nausea and vomiting. She states she is voiding without difficulty. She denies hematuria. Hospital Course Hospital Course: Her U/A revealed a possible UTI. She was started on Rocephin and a culture was ordered. She did have some confusion during the evening of 03/01/19. She developed some right lower quadrant abdominal pain and flank pain which was relieved with morphine. Her urine culture came back with mixed organisms suggesting contamination. Her renal function slightly worsened therefore she was continued on IV fluids. Dr. Sylvester was consulted and he recommended no surgical intervention as the patient was asymptomatic. He recommended to continue antibiotics. The patient developed a headache and was given tramadol for this, which helped. Her right flank pain did improve slightly. She requested some MiraLAX for constipation and this was ordered. She was able to sit up in a chair. Her blood cultures did return positive for staph epidermidis which was sensitive to mostly IV antibiotics. It was felt this may be a contaminant. The patient was without a fever and her white blood cell count was normal. The patient and her daughter both wanted to go home. [facility] was contacted and will follow the patient at home. She was stable to be discharged on continued antibiotics. Objective Vital signs: Temp Pulse Resp BP Pulse Ox 97.6 F 60 17 138/65 97 03/02/19 08:00 03/02/19 08:00 03/02/19 08:00 03/02/19 08:00 03/02/19 08:00 Narrative: - Constitutional no acute distress - *Routine HEENT Exam Head: Present: normocephalic, atraumatic Eye: Present: PERRL. Absent: conjunctival icterus, scleral injection ENT: Present: mucous membranes moist, oropharynx clear - *Routine Neck Exam Present: supple. Absent: carotid bruit, lymphadenopathy, thyromegaly - *Routine Respiratory Exam Present: CTA bilaterally (Anteriorly and posteriorly) - *Routine Cardiovascular Exam Present: RRR - *Routine Abdominal Exam Present: soft, normoactive bowel sounds. Absent: tenderness, distended, guarding - *Routine Extremities Exam Present: full ROM. Absent: edema, calf tenderness - *Routine Neurological Exam Present: alert, oriented X3 Results Labs on day of discharge: Preliminary micro results at discharge 02/27/19 19:25 Blood Culture - Preliminary Blood Staphylococcus epidermidis 02/27/19 19:25 Blood Culture - Preliminary Blood NO GROWTH AFTER 48 HOURS DS: Diagnosis - Discharge Diagnosis (1) UTI (urinary tract infection) Status: Acute (2) Abdominal pain of unknown etiology Status: Acute (3) History of CVA with residual deficit Status: Acute (4) Renal calculus Status: Acute (5) Paroxysmal atrial fibrillation Status: Acute (6) Hypertension Status: Acute Discharge Plan - Patient Discharge Instructions ACTIVITY: Continue current activity DIET: continue same diet Patient Instructions: Urinary Tract Infection, Gallstones, Acute Abdominal Pain, DI for Gallstones, DI for Urinary Tract Infection (UTI), DI for Acute Abdomen - Follow up Plan Follow up with: Arvind Farooq MD [Primary Care Provider] - 03/07/19 2:20 pm Disposition: Home, [facility] Medications: Home Medications Medication Instructions Recorded Confirmed Type Bisoprolol Fumarate [Zebeta] 10 mg PO DAILY 08/02/17 02/27/19 History Cholecalciferol (Vitamin D3) 1 tab PO DAILY 08/02/17 02/27/19 History [Vitamin D3 1,000 Unit Cap] Hydralazine HCl [Hydralazine HCl 25 mg PO TID 08/02/17 02/27/19 History 25mg Tablet] Multivitamin [One Daily 1 tab PO DAILY 08/02/17 02/27/19 History Multivitamin] Pantoprazole Sodium [Protonix 40mg 40 mg PO DAILY 08/02/17 02/27/19 History tablet] Rivaroxaban [Xarelto 15mg tablet] 15 mg PO 1700 08/02/17 02/27/19 History Triamterene/Hydrochlorothiazid 1 cap PO DAILY 08/02/17 02/27/19 History [Dyazide 37.5-25 Capsule] methIMAzole [Methimazole] 5 mg PO DAILY 08/02/17 02/27/19 History Alendronate Sodium [Binosto] 70 mg PO WEEKLY 02/27/19 02/27/19 History Cranberry Fruit Extract [Cranberry] 500 mg PO BID 02/27/19 02/27/19 History Polyethylene Glycol 3350 [Miralax 17 gm PO DAILY 02/27/19 02/27/19 History 17gm Packet] Ubidecarenone [Co Q-10] 100 mg PO DAILY 02/27/19 02/27/19 History Prescriptions/Medication Reconciliation: Continued methIMAzole [Methimazole] 5 mg PO DAILY Pantoprazole Sodium [Protonix 40mg tablet] 40 mg PO DAILY Hydralazine HCl [Hydralazine HCl 25mg Tablet] 25 mg PO TID Bisoprolol Fumarate [Zebeta] 10 mg PO DAILY Rivaroxaban [Xarelto 15mg tablet] 15 mg PO 1700 Multivitamin [One Daily Multivitamin] 1 tab PO DAILY Cholecalciferol (Vitamin D3) [Vitamin D3 1,000 Unit Cap] 1 tab PO DAILY Alendronate Sodium [Binosto] 70 mg PO WEEKLY Ubidecarenone [Co Q-10] 100 mg PO DAILY Cranberry Fruit Extract [Cranberry] 500 mg PO BID Triamterene/Hydrochlorothiazid [Dyazide 37.5-25 Capsule] 1 cap PO DAILY Polyethylene Glycol 3350 [Miralax 17gm Packet] 17 gm PO DAILY
== END 2019-03-02 13:23 | disposition home or self-care (01) ==
LOC: ER 18:54 → 2ND 18:54
PROVIDERS: ADMIT Family Medicine; ATTEND Family Medicine
DX: Z88.1 Allergy status to other antibiotic agents; K80.20 Calculus of gallbladder without cholecystitis without obstruction; Z79.899 Other long term (current) drug therapy; I10 Essential (primary) hypertension; N20.0 Calculus of kidney; Z88.2 Allergy status to sulfonamides; N39.0 Urinary tract infection, site not specified; I69.30 Unspecified sequelae of cerebral infarction; I25.2 Old myocardial infarction; Z88.8 Allergy status to other drugs, medicaments and biological substances; I48.0 Paroxysmal atrial fibrillation
CPT/HCPCS: 36415; 70450; 71010; 71045; 74176; 80048; 80053; 81001; 83605; 84443; 84484; 85007; 85025; 87040; 87077; 87086; 87186; 93005; 96365; 96375; 97162; 99284; G0378; J2405